=== PATIENT | male | born 1950 ===

== ENCOUNTER 2018-04-11 12:23 | Inpatient (IN) | payer OTHER ==
[~2018-04-11] VITALS: Ht 165.1 cm; Wt 108.9 kg
[~2018-04-11 12:23] MED LIST: NABUMETONE500 MG PO; PERCOCET 5/3251 TAB PO
[2018-05-09] MEDS ORDERED: VALTREX1000 MG PO (10:08)
[2018-05-09] MEDS ORDERED: PRED FORTE1 ML OP (10:09)
[2018-05-09] MEDS ORDERED: SIMVASTATIN20 MG PO (10:10)
[2018-05-09] MEDS ORDERED: DORZOLAMIDE HCL10 ML (10:10)
[2018-05-09] MEDS ORDERED: GLIPIZIDE5 MG PO (10:10)
[2018-05-09] MEDS ORDERED: SYNTHROID88 MCG PO (10:10)
[2018-05-09] MEDS ORDERED: METFORMIN HCL500 MG PO (10:10)
[2018-05-09] MEDS ORDERED: LOSARTAN-HCTZ1 EAC1 PO (10:11)
[2018-05-09] MEDS ORDERED: LUMIGAN2.5 M1 (10:12)
[2018-05-09] MEDS ORDERED: COMBIGAN EYE DRO5 ML OP (10:12)
== END 2018-05-10 19:55 | DRG 470 ==
LOC: SURH 05-08 06:10 → O/R 05-08 06:10 → SURH 05-08 09:45
PROVIDERS: Orthopaedic Surgery
PROC: 0SRC0J9 Replacement of Right Knee Joint with Synthetic Substitute, Cemented, Open Approach (ICD-10-PCS; principal; 2018-05-08 09:45)
DX: M17.11 Unilateral primary osteoarthritis, right knee (principal); D62 Acute posthemorrhagic anemia